=== PATIENT | female | born 1955 | race Caucasian/White ===

== ENCOUNTER → 2018-12-17 09:26 | Outpatient (CLI) | payer BC, SELFPAY ==
--- NOTE | 2018-12-17 09:33 | XR_ITS ---
PROCEDURE: XR FOOT WT BEARING RT 3V CLINICAL INDICATION: pain COMPARISON: XR FOOT WT BEARING LT 3V from 12/17/2018 FINDINGS: No fracture or dislocation. No lytic or blastic change. There is normal mineralization. Minimal osteoarthritic changes are present at the midfoot at the metatarsal tarsal junction. There is a small calcaneal spur and a small enthesophyte at the Achilles insertion Other findings:None. IMPRESSION: Mild osteoarthritic change Dictated by: Hugo Erwin MD 12/17/2018 13:33 Electronically signed by Hugo Erwin MD in [place] 12/17/2018 13:33
--- NOTE | 2018-12-17 09:33 | XR_ITS ---
PROCEDURE: XR FOOT WT BEARING LT 3V CLINICAL INDICATION: pain COMPARISON: No exams were available for comparison FINDINGS: No fracture or dislocation. No lytic or blastic change. There is normal mineralization. Prominent enthesophytes present at the Achilles insertion and there is a small calcaneal spur. Other findings:Mild osteoarthritic change at the ankle IMPRESSION: Mild osteoarthritic change Dictated by: Hugo Erwin MD 12/17/2018 13:31 Electronically signed by Hugo Erwin MD in [place] 12/17/2018 13:31
== END ==
PROVIDERS: Visit Provider Podiatrist
DX: M79.672 Pain in left foot (principal); M79.671 Pain in right foot
CPT/HCPCS: 73630; 87220

== ENCOUNTER → 2018-12-31 10:10 | Outpatient (CLI) | payer BC, SELFPAY ==
[2018-12-31 10:33] LABS: Basophils % 0.5 % (0.1-2.0); Eosinophils # 0.2 K/mm3 (0.0-0.4); Eosinophils % 3.9 % (0.1-12.0); Hematocrit 29.2 % (37.0-47.0); Hemoglobin 8.9 g/dL (12.2-16.2); Lymphocytes # 0.8 K/mm3 (0.7-4.5); Lymphocytes % 20.7 % (10-50); Mean Corpuscular HGB Conc 30.6 g/dL (31.8-35.4); Mean Corpuscular Hemoglobin 24.5 pg (27.0-31.2); Mean Corpuscular Volume 80.2 fl (81-99); Mean Platelet Volume 9.2 fl (7.4-10.4); Monocytes # 0.2 K/mm3 (0.1-1.0); Monocytes % 5.3 % (1.7-9.3); Neutrophils # 2.6 K/mm3 (1.8-7.8); Neutrophils % 69.6 % (37.0-80.0); Red Blood Count 3.64 M/mm3 (4.20-5.40); White Blood Count 3.8 K/mm3 (4.8-10.8)
[2018-12-31 11:59] LABS: Anion Gap 14.9 mEq/L (5-15); Carbon Dioxide 26 mmol/L (21.0-32.0); Chloride 107 mmol/L (98-107); Potassium 3.9 mmoL/L (3.5-5.1); Sodium 144 mmol/L (136-145)
[2018-12-31 12:00] LABS: Alanine Aminotransferase 26 U/L (12-78); Albumin Level 3.1 gm/dL (3.4-5.0); Alkaline Phosphatase 90 U/L (46-116); Aspartate Amino Transferase 36 U/L (15-37); Bilirubin,Total 0.5 mg/dL (0.2-1.0); Blood Urea Nitrogen 17 mg/dL (7-18); Calcium 8.2 mg/dL (8.5-10.1); Chol/HDL Ratio 2.9 (1-3.5); Cholesterol 166 mg/dL (140-200); Creatinine,Serum 0.53 mg/dL (0.55-1.02); Estimated Glomerular Filt Rate 116 ml/min (>60); GFR (African American) 141 ML/MIN (>60); Glucose 100 mg/dL (74-106); HDL Cholesterol 58 mg/dL (29-89); LDL Cholesterol 91 mg/dL (0-130); Total Protein,Serum 6.1 gm/dL (6.4-8.2); Triglycerides 85 mg/dL (30-200); VLDL Cholesterol 17 mg/dL (0-40)
[2018-12-31 14:29] LABS: Hemoglobin A1C 5.6 % (0.0-7.0)
[2018-12-31 15:58] LABS: Platelet Count 59 K/mm3 (142-424)
== END ==
PROVIDERS: Visit Provider Internal Medicine Geriatric Medicine
DX: E78.2 Mixed hyperlipidemia (principal); R73.01 Impaired fasting glucose
CPT/HCPCS: 36415; 80053; 80061; 83036; 85025

== ENCOUNTER → 2019-01-05 14:30 | Outpatient (CLI) | payer BC, SELFPAY ==
--- NOTE | 2019-01-05 14:33 | US_ITS ---
APPROVED REPORT Exam Type: Lower Extremity Segmental Pressures Business System Manager: Lenka Sanches RDCS Indications Claudication: Edema CAD Risk Factors Hypertension Pressures/Indices Right Indices Left Indices Brachial 141.00 mmHg Brachial 138.00 mmHg Low Thigh 152.00 mmHg 1.08 Low Thigh 162.00 mmHg 1.15 Calf 152.00 mmHg 1.08 Calf 141.00 mmHg 1.00 Ankle(PT) 156.00 mmHg 1.11 Ankle(PT) 159.00 mmHg 1.13 Ankle(DP) 147.00 mmHg 1.04 Ankle(DP) 137.00 mmHg 0.97 Digit 120.00 mmHg 0.85 Digit 146.00 mmHg 1.04 Findings R DAVID 1.1 L DAVID 1.1 R TBI .9 L TBI 1.0 NORMAL PULSES AND WAVEFORMS Conclusion Normal Exam Electronically signed by : Hugo Erwin MD 01/08/2019 16:42:07
== END ==
PROVIDERS: Visit Provider Podiatrist
DX: R09.89 Other specified symptoms and signs involving the circulatory and respiratory systems (principal)
CPT/HCPCS: 93923

== ENCOUNTER → 2019-04-28 14:03 | Outpatient (CLI) | payer MEDICARE, SELFPAY ==
--- NOTE | 2019-04-28 14:20 | CA_ITS ---
APPROVED REPORT Line Server: Angelita Corral RVT Laterality: Bilateral Study Quality: Good Indications: bruit Risk Factors Hypertension: Doppler Spectral Velocity Analysis ECA (R) 107.00/13.40 cm/s ECA (L) 92.50/14.20 cm/s dICA (R) 52.70/12.90 cm/s dICA (L) 55.90/16.80 cm/s Ly (R) 69.20/17.50 cm/s Ly (L) 68.80/15.70 cm/s pICA (R) 53.90/15.30 cm/s pICA (L) 70.10/18.40 cm/s dCCA (R) 90.50/17.30 cm/s dCCA (L) 101.10/14.60 cm/s pCCA (R) 83.00/12.90 cm/s pCCA (L) 60.00/15.40 cm/s Vert (R) 41.70/11.00 cm/s Vert (L) 35.80/9.30 cm/s ICA/CCA 0.76 ICA/CCA 0.69 Findings Study suggests no evidence of stenosis in the bilateral internal cartoid arteries. Antegrade flow seen bilateral vertebral arteries. Tortuosity of the right internal cartoid artery noted. Conclusion No increased velocities to suggest hemodynamically significant stenosis in either internal carotid artery. Electronically signed by : Hugo Erwin MD 04/30/2019 17:25:49
--- NOTE | 2019-04-28 14:20 | CA_ITS ---
APPROVED REPORT EXAM: Comprehensive 2D, Doppler, and color-flow Echocardiogram Ethylbenzene Converter Operator: Lenka Sanches RDCS Ht: 5 ft 3 in Wt: 286lbs BSA: 2.25 BP: 137/40 mmHg Indications: PP,CAD,CP,HTN,HLP,SOA DEFINITY ECHO Echo Enhancing Agent Indication: Endocardial border delineation Agent(s) / Amount(s) Used: Definity 1 cc M-Mode Dimensions RVDd 3.90 cm (0.9-2.6) LVDd 6.00 cm (3.5-5.7) LVDs 4.70 cm (3.5-5.7) IVSd 1.10 cm (0.6-1.1) PWd 1.10 cm (0.6-1.1) EF (Teich) 48.00% LV Diastology MED E' 7.20 (< 7 cm/sec) LAT E' 7.80 (<10 cm/sec) Left Ventricle Left atrium is mildly enlarged, left ventricle is normal size, visually estimated ejection fraction 45 to 50%, there appears to be moderate hypokinesis involving the distal septum and apical wall. Definity contrast was utilized to delineate the endocardial surfaces, there is no left ventricular thrombus seen. Right Ventricle Right atrium and right ventricle are normal size and contractility. Aortic Valve Aortic valve is minimally thickened and fibrosed, there is no aortic stenosis aortic insufficiency. Mitral Valve Mitral valve is grossly normal, there is mild mitral regurgitation. Tricuspid Valve Tricuspid valve is grossly normal, there is mild tricuspid regurgitation. Pulmonic Valve Pulmonic valve is poorly visualized. Great Vessels Aortic root is normal size. Pericardium No significant pericardial effusion noted. Conclusion 1. Limited study was performed to delineate the endocardial surfaces with Definity contrast. 2. Normal left ventricular size, mild concentric left ventricular hypertrophy, visually estimated ejection fraction approximately 45 to 50% with segmental wall motion abnormality described above, there is no left ventricular thrombus seen. 3. No significant pericardial effusion noted. Electronically signed by : Yunier Enriquez, 04/29/2019 15:57:39
[2019-04-28 17:06] LABS: Blood Urea Nitrogen 17 mg/dL (7-18); Calcium 8.4 mg/dL (8.5-10.1); Carbon Dioxide 26 mmol/L (21.0-32.0); Chloride 109 mmol/L (98-107); Creatinine,Serum 0.84 mg/dL (0.55-1.02); Estimated Glomerular Filt Rate 68 ml/min (>60); GFR (African American) 82 ML/MIN (>60); Glucose 126 mg/dL (74-106); Sodium 145 mmol/L (136-145)
== END ==
LOC: LAB 14:03 → RT 14:11
PROVIDERS: Visit Provider Internal Medicine Cardiovascular Disease
DX: R06.02 Shortness of breath (principal); D64.9 Anemia, unspecified; I11.9 Hypertensive heart disease without heart failure; I25.10 Atherosclerotic heart disease of native coronary artery without angina pectoris; Z95.0 Presence of cardiac pacemaker; R07.9 Chest pain, unspecified; I65.29 Occlusion and stenosis of unspecified carotid artery; R09.89 Other specified symptoms and signs involving the circulatory and respiratory systems
CPT/HCPCS: 36415; 80048; 83880; 93306; 93880; Q9957

== ENCOUNTER → 2019-05-20 11:57 | Outpatient (CLI) | payer MEDICARE, SELFPAY ==
--- NOTE | 2019-05-20 11:57 | NM_ITS ---
APPROVED REPORT Exam: Nuclear Stress Test Indication: SOB, Fatigue, HTN, CAD, High cholesterol, Family history Patient Location: Outpatient Stress Tech: Xiomara Ross SC Tech:Eunice AcevedoHAN RT(R)(N) Ht: 5 ft 4 in Wt: 283 lbs Bra Size: 48B HR: 71 bpm BP: 116/64 mmHg BSA: 2.27 m2 BMI: 48.5 History: SOB, Fatigue, HTN, CAD, High cholesterol, Family history Procedure: Patient received a 0.4 mg of intravenous Lexiscan, resting heart rate 71 bpm, resting blood pressure 116/64 mmHg, with Lexiscan maximum heart rate achived was 72 bpm which is Less than 85 % of the maximum predicted heart rate and blood pressure was 122/62 mmHg. Electrocardiogram Resting electrocardiogram showed probably sinus rhythm with first-degree AV block, nonspecific ST-T changes, with Lexiscan less than 1.[address] segment depression noted from the baseline EKG. The EKG portion of the Lexiscan Myoview is nondiagnostic. Cardiac Stress and Resting SPECT Images: Cardiac Stress and Resting SPECT images were obtained using technetium 99m Myoview 30.6 mCi stress and 10.95 mCi at rest. Gated SPECT for analysis of segmental wall motion and calculation of the ejection fraction also done. Cardiac stress and resting SPECT images show decrease tracer activity in the anterior apical wall which improves on the resting images suggestive of reversible ischemia, computer derived ejection fraction is 52% with no regional wall motion abnormality, right ventricle is mildly enlarged with normal contractility. Conclusion: 1. The EKG portion of the Lexiscan Myoview is nondiagnostic. 2. Scintigraphic evidence of mild reversible ischemia involving the anterior apical wall, computer derived ejection fraction 52% with no regional wall motion abnormality, right ventricle is normal size and contractility. 3. Abnormal Lexiscan Myoview study. Electronically signed by : Yunier Enriquez, 05/20/2019 16:25:24
--- NOTE | 2019-05-20 14:00 | CA_ITS ---
APPROVED REPORT Exam: Pharmacologic Technologist: Xiomara Ross, Ht: 5 ft 4 in Wt: 283 lbs BSA: 2.27 m2 HR: 71 bpm BP: 116/64 mmHg Rhythm: Paced Indications: Abn Echo Medical History Medical History: HTN, Hyperlipidemia Medications: Lisinopril,,,,, Omeprazole,,,,, Aspirin,,,,, Albuterol,,,,, Sucralfate,,,,, Fluoxetin,,,,, DilTiazem,,,,, SpirOnolactone,,,,, AtorvaASTATIN,,,,, PolyethYLENE,,,,, IsosoBIDE,,,,, NYstatin,,,,, Cardiac Risk Factors: HTN, Hyperlipidemia, FHX of CAD Stress Test Details Test: LEXISCAN HR Resting HR: 71 bpm Max Heart Rate (APMHR): 155 bpm Max HR Achieved: 74 bpm Target HR (85% APMHR): 131 bpm % of APMHR: 47 BP Resting BP: 116/64 mmHg Max BP: 122/62 mmHg ECG Clinical Exercise duration: 04:02 min Highest Stage Achieved: Exercise capacity: 1.0 METs Stress ECG Conclusion Mild SOA, chest discomfort, malaise, stomach discomfort are symptoms noted / no arrhythmias noted / No significant ST-T changes unremarkable Lexiscan stress / Myoview images reported separately Electronically signed by : Yunier Enriquez, 05/20/2019 16:23:03
--- NOTE | 2019-05-20 14:49 | HMH.ITSHM ---
Current Home Medications as stated by this patient Angela Botello or new accounts banking representative. []ASA METOPROLOL ISOSORBIDE LISINOPRIL FLUOXETINE OMEPRAZOLE DILT-XR ATORVASTATIN
== END ==
PROVIDERS: PCP Nurse Practitioner Family; Visit Provider Internal Medicine Cardiovascular Disease
DX: R07.9 Chest pain, unspecified; D64.9 Anemia, unspecified; E78.5 Hyperlipidemia, unspecified; I11.9 Hypertensive heart disease without heart failure; I25.10 Atherosclerotic heart disease of native coronary artery without angina pectoris; G47.33 Obstructive sleep apnea (adult) (pediatric); R53.83 Other fatigue; Z95.0 Presence of cardiac pacemaker
CPT/HCPCS: 78452; 93017; A9502; J2785

== ENCOUNTER → 2019-07-08 11:02 | Outpatient (CLI) | payer MEDICARE, SELFPAY ==
[2019-07-08 12:27] LABS: NT Pro Brain Natriuretic Pep. 30.6 pg/mL (0-125)
== END ==
PROVIDERS: Visit Provider Internal Medicine Cardiovascular Disease
DX: E78.2 Mixed hyperlipidemia (principal); I11.9 Hypertensive heart disease without heart failure; I25.118 Atherosclerotic heart disease of native coronary artery with other forms of angina pectoris; R06.00 Dyspnea, unspecified; R11.2 Nausea with vomiting, unspecified; R19.7 Diarrhea, unspecified; R60.0 Localized edema; Z95.0 Presence of cardiac pacemaker
CPT/HCPCS: 36415; 83880

== ENCOUNTER 2019-07-23 10:48 | Observation (INO) | payer MEDICARE, SELFPAY ==
[2019-07-23 10:49] VITALS: BP 117/85; PULSE 70; RESP 20; TEMP 37.4; O2SAT 98; BMI 37.1
--- NOTE | 2019-07-23 11:06 | ECG_ITS ---
APPROVED REPORT Exam: Resting ECG HR:71 bpm ECG Measurements Heart Rate 71 AXES ID P 60 QRSd 98 QRS -3 QT 412 T 13 QTc 447 <Conclusion> Sinus rhythm Low voltage QRS Poor R Wave Progression Abnormal ECG Electronically signed by : Shayan Cummings, 07/25/2019 17:30:17
[2019-07-23 11:19] VITALS: BP 119/71; PULSE 81; RESP 18; O2SAT 96
--- NOTE | 2019-07-23 11:24 | CT_ITS ---
PROCEDURE: CT ABDOMEN PELVIS W CON CLINICAL INDICATION: NV Abdominal pain with nausea and vomiting COMPARISON: No exams were available for comparison TECHNIQUE: IV Contrast: 75ML OPTIRAY 350 Oral Contrast none Axial images obtained with sagittal and coronal reformats. All CT scans at the facility use one or more dose reduction, viz: automated exposure control, ma/kV adjustment per patient size (including targeted exams where dose is matched to indication, i.e. head), or iterative reconstruction technique. FINDINGS: LOWER THORAX: No acute finding ABDOMEN & PELVIS: There is hepatomegaly. The borders of the liver are somewhat irregular suggesting cirrhosis. There is mild enlargement of the caudate lobe of the liver. There has been a prior cholecystectomy. The spleen is enlarged at 16 cm in AP dimension. The adrenal glands, pancreas, and kidneys have an unremarkable appearance. There are few small nodular opacities in the celiac region and could be due to small varices or small nodes. There is a small umbilical hernia which contains fat No evidence of appendicitis, intestinal obstruction, or free air. There is a Zuniga catheter present within a collapsed bladder with a small amount air in the bladder. There are post hysterectomy changes. There is diverticulosis of the sigmoid and descending colon. No evidence of diverticulitis. There is few scattered sclerotic foci of the pelvis and may be due to bone islands. IMPRESSION: 1. Hepatosplenomegaly with suspected cirrhosis 2. Colonic diverticulosis. No evidence of diverticulitis or other acute anomaly Dictated by: Hugo Erwin MD 07/23/2019 12:58 Electronically signed by Hugo Erwin MD in [place] 07/23/2019 12:58
--- NOTE | 2019-07-23 11:24 | XR_ITS ---
PROCEDURE: XR CHEST PORTABLE CLINICAL HISTORY: SOA Shortness of air COMPARISON: XR CHEST PORTABLE from 03/01/2019 XR CHEST PORTABLE from 07/05/2019 CT ANGIO CHEST from 07/05/2019 FINDINGS: Coronary artery stent is present. Cardiac pacemaker is present. No evidence of CHF. Patchy density noted in the left mid lung and may be due to summation artifact the scapula and ribs and vessels. Upright PA and lateral chest may confirm. The remaining lungs are clear. No acute bony abnormalities. IMPRESSION: No definite acute finding. Please see above for detail Dictated by: Hugo Erwin MD 07/23/2019 13:00 Electronically signed by Hugo Erwin MD in [place] 07/23/2019 13:00
[2019-07-23 11:32] LABS: Basophils # 0.1 K/mm3 (0-0.2); Basophils % 0.6 % (0.1-2.0); Eosinophils # 0.1 K/mm3 (0.0-0.4); Eosinophils % 1.2 % (0.1-12.0); Hemoglobin 12.9 g/dL (12.2-16.2); Lymphocytes # 0.9 K/mm3 (0.7-4.5); Lymphocytes % 10.1 % (10-50); Mean Corpuscular HGB Conc 33.1 g/dL (31.8-35.4); Mean Corpuscular Hemoglobin 28.7 pg (27.0-31.2); Mean Corpuscular Volume 86.6 fl (81-99); Mean Platelet Volume 8.8 fl (7.4-10.4); Monocytes # 0.5 K/mm3 (0.1-1.0); Monocytes % 5.1 % (1.7-9.3); Neutrophils # 7.5 K/mm3 (1.8-7.8); Platelet Count 129 K/mm3 (142-424); Red Cell Distribution Width 16.3 % (11.5-17.5)
[2019-07-23 11:34] LABS: Appearance,Urine CLEAR (Clear); Bilirubin,Urine Negative (Negative); Blood, Urine Negative (Negative); Color,Urine YELLOW (Yellow); Glucose,Urine (UA) Negative (Negative); Ketones,Urine Negative (Negative); Leukocyte Esterase,Urine Negative (Negative); Nitrate,Urine Negative (Negative); Protein,Urine Negative (Negative); Specific Gravity, Urine 1.015 (1.005-1.030); Urobilinogen,Urine 0.2 EU/dl (0.2)
[2019-07-23 11:35] LABS: Microscopic, Urine URINE MICROSCOPIC (MICROSCOPIC)
[2019-07-23 11:42] LABS: Alanine Aminotransferase 33 U/L (12-78); Albumin Level 4.2 g/dl (3.5-5.0); Albumin/Globulin Ratio 1.4 (1.1-1.8); Alkaline Phosphatase 136 U/L (38-126); Amylase 78 U/L (30-110); Anion Gap 15.9 mEq/L (5-15); Aspartate Amino Transferase 56 U/L (14-36); Bilirubin,Total 1.4 mg/dl (0.2-1.3); Blood Urea Nitrogen 15 mg/dl (7-17); Calcium 9.5 mg/dl (8.4-10.2); Carbon Dioxide 22 mmol/L (22.0-30.0); Chloride 103 mmol/L (98-107); Creatinine Clearance Estimated 92 mL/min (50-200); Estimated Glomerular Filt Rate 72 ml/min (>60); GFR (African American) 87 ML/MIN (>60); Glucose 112 mg/dl (74-100); Lipase 275 U/L (23-300); Potassium 3.9 mmoL/L (3.5-5.1); Sodium 137 mmol/L (136-145); Strep Scrn Group A (Rapid) Negative (Negative); Total Protein,Serum 7.2 g/dl (6.3-8.2)
[2019-07-23 11:45] LABS: Bacteria,Urine 1+ /lpf; Mucus,Urine 1+ /lpf
[2019-07-23 11:46] LABS: Lactic Acid 2.9 mmol/L (0.7-2.1)
[2019-07-23 11:47] LABS: C-Reactive Protein 6.5 mg/L (0-4)
[2019-07-23 11:49] VITALS: BP 94/60; PULSE 71; RESP 20; O2SAT 97
[2019-07-23 11:55] LABS: Erythrocyte Sedimentation Rate 35 mm/hr (0-30)
[2019-07-23 11:57] LABS: Troponin I < 0.01 ng/ml (0.00-0.034)
--- NOTE | 2019-07-23 12:05 | HMH.EDNVD ---
ED Disposition Clinical Impression: Gastroenteritis, Dehydration, Morbid obesity with BMI of 45.0-49.9, adult, Plantar wart of right foot, Intractable abdominal pain, UTI (urinary tract infection), GERD (gastroesophageal reflux disease) Disposition: Admitted as Observation Condition on Discharge: Good Instructions: DI for Diarrhea and Traveler's Diarrhea -- Adult, DI for Diarrhea and Traveler's Diarrhea -- Child, DI for Nausea -- Adult, DI for Nausea -- Child Additional Instructions: Spoke to Matias about admission for this patient Dr. Gallagher also agreed. Referrals: Stuart Gallagher MD [Primary Care Provider] - - Critical Care Critical Care Time: No Attestation: On 07/23/19, the high probability of a clinically significant, sudden or life threatening deterioration of the following system(s) required my full and direct attention, intervention and personal management. The time I documented below is in addition to time spent performing reported procedures but includes the following listed in this critical care notation. Medical Decision Making - Medical Records Medical records reviewed: Yes: I reviewed the patient's medical records. - Fercho Inquiry Pt receiving controlled substance: No Vital Signs: 07/23/19 10:49 07/23/19 11:19 07/23/19 11:49 Temperature 99.3 F Temperature Source Rectal Pulse Rate [Right] 70 81 71 Respiratory Rate 20 18 20 Blood Pressure [Right Arm] 117/85 119/71 94/60 L Blood Pressure Mean [Right Arm] 95 87 71 Blood Pressure Source [Right Arm] Automatic Cuff Automatic Cuff Blood Pressure Position [Right Arm] Supine Supine 02 Sat by Pulse Oximetry 98 96 97 - Lab Data Lab results reviewed: Yes: I reviewed the patient's lab results. Lab Results 07/23/19 11:20: Urine Color Yellow, Urine Appearance Clear, Urine pH 6.0, Ur Specific [place] 1.015, Urine Protein Negative, Urine Glucose (UA) Negative, Urine Ketones Negative, Urine Blood Negative, Urine Nitrate Negative, Urine Bilirubin Negative, Urine Urobilinogen 0.2, Ur Leukocyte Esterase Negative, Urine RBC 5-10, Urine WBC 10-20, Ur Squamous Epith Cells 3-5, Urine Bacteria 1+, Hyaline Casts 5-10, Urine Mucus 1+ 07/23/19 11:20: WBC 9.0, RBC 4.50, Hgb 12.9, Hct 39.0, MCV 86.6, MCH 28.7, MCHC 33.1, RDW 16.3, Plt Count 129 L, MPV 8.8, Neut % (Auto) 83.0 H, Lymph % (Auto) 10.1, [place] % (Auto) 5.1, Eos % (Auto) 1.2, Baso % (Auto) 0.6, Neut # (Auto) 7.5, Lymph # (Auto) 0.9, [place] # (Auto) 0.5, Eos # (Auto) 0.1, Baso # (Auto) 0.1 07/23/19 11:20: Sodium 137, Potassium 3.9, Chloride 103, Carbon Dioxide 22, Anion Gap 15.9 H, BUN 15, Creatinine 0.80, Estimated Creat Clear 92, Estimated GFR 72, Est GFR ( Amer) 87, Glucose 112 H, Calcium 9.5, Total Bilirubin 1.4 H, AST 56 H, ALT 33, Alkaline Phosphatase 136 H, Troponin I < 0.01, C-Reactive Protein 6.5 H, Total Protein 7.2, Albumin 4.2, Globulin 3.0, Albumin/Globulin Ratio 1.4, Amylase 78, Lipase 275 07/23/19 11:20: Lactate 2.9 H 07/23/19 11:20: Influenza Type A Ag Negative, Influenza Type B Ag Negative 07/23/19 11:20: Group A Strep Rapid Negative 07/23/19 11:20: ESR 35 H 07/23/19 12:25: Chlamy pneumoniae PCR Not detected, Adenovirus (PCR) Not detected, B. pertussis DNA (PCR) Not detected, Coronavirus OC43 (PCR) Not detected, Coronavirus HKU1 (PCR) Not detected, Coronavirus 229E (PCR) Not detected, Coronavirus NL63 (PCR) Not detected, Human Metapneumovir PCR Not detected, Influenza A (H1) PCR Not detected, Influ A (H1N1/09) PCR Not detected, Influenza A (H3) PCR Not detected, Influenza Type A (PCR) Not detected, Influenza Type B (PCR) Not detected, M. pneumoniae (PCR) Not detected, Parainfluenza 1 (PCR) Not detected, Parainfluenza 2 (PCR) Not detected, Parainfluenza 3 (PCR) Not detected, Parainfluenza 4 (PCR) Not detected, RSV (PCR) Not detected, Entero/Rhino (PCR) Not detected Result diagrams: 07/23/19 11:20 07/23/19 11:20 Orders (Tests/Meds): ED MEDICATIONS Discontinued Medications Generic Name Dose Route
[2019-07-23 12:33] LABS: Adenovirus,PCR Not Detected (NotDetected); Bordetella Pertussis Not Detected (NotDetected); Chlamydophila Pneumoniae, PCR Not Detected (NotDetected); Coronavirus 229E Not Detected (NotDetected); Coronavirus NL63 Not Detected (NotDetected); Coronavirus OC43 Not Detected (NotDetected); Coronovirus HKU1,PCR Not Detected (NotDetected); Human Metapneumovirus Not Detected (NotDetected); Influenza A, PCR Not Detected (NotDetected); Influenza AH1, 2009 Not Detected (NotDetected); Influenza AH1, PCR Not Detected (NotDetected); Influenza AH3,PCR Not Detected (NotDetected); Influenza B, PCR Not Detected (NotDetected); Mycoplasma Pneumoniae, PCR Not Detected (NotDetected); Parainfluenza 1, PCR Not Detected (NotDetected); Parainfluenza 2, PCR Not Detected (NotDetected); Parainfluenza 3, PCR Not Detected (NotDetected); Parainfluenza 4, PCR Not Detected (NotDetected); Respiratory Syncytial Virus Not Detected (NotDetected); Rhinovirus/Enterovirus Not Detected (NotDetected)
[2019-07-23 14:28] VITALS: BMI 40.7
[2019-07-23 14:42] VITALS: BP 114/85; PULSE 85; RESP 20; TEMP 36.8; O2SAT 98
--- NOTE | 2019-07-23 15:01 | HMH.PHAVTE ---
[facility] Pharmacy VTE Monitoring - Patient Demographics Admission date: 07/23/19 Report Date: 07/23/19 Time: 15:01 Allergies/Adverse Reactions: Patient Allergies furosemide [From Lasix] Allergy (Severe, Verified 07/09/19 10:35) tongue swelling acetaminophen [From Coricidin] Allergy (Mild, Verified 07/09/19 10:35) Hives chlorpheniramine [From Coricidin] Allergy (Mild, Verified 07/09/19 10:35) Hives erythromycin base Allergy (Mild, Verified 07/09/19 10:35) Hives phenylpropanolamine [From Coricidin] Allergy (Mild, Verified 07/09/19 10:35) Hives ranolazine [From Ranexa] Allergy (Mild, Verified 07/09/19 10:35) Hives Sulfa (Sulfonamide Antibiotics) Allergy (Mild, Verified 07/09/19 10:35) Hives tegaserod [From Zelnorm] Adverse Reaction (Severe, Verified 07/09/19 10:35) Height: 1.68 m Weight: 104.326 kg Patient Problems: Current Active Problems Gastroenteritis (Acute) Dehydration (Acute) Intractable abdominal pain (Acute) UTI (urinary tract infection) (Acute) GERD (gastroesophageal reflux disease) (Acute) Morbid obesity with BMI of 45.0-49.9, adult (Acute) Plantar wart of right foot (Acute) - VTE Risk Labs: VTE Related Lab Results Hgb 12.9 g/dL (12.2-16.2) 07/23/19 11:20 Hct 39.0 % (37.0-47.0) 07/23/19 11:20 Plt Count 129 K/mm3 (142-424) L 07/23/19 11:20 BUN 15 mg/dl (7-17) 07/23/19 11:20 Creatinine 0.80 mg/dl (0.52-1.04) 07/23/19 11:20 Estimated Creat Clear 92 mL/min (50-200) 07/23/19 11:20 - Prophylaxis VTE Prophylaxis Ordered?: Yes Types of VTE Prophylaxis: TEDS Knee High Location of Applied Device: Bilateral Lower Extremeties - VTE Diagnosis Confirmed Treatment or plan recommended: Continue Current Treatment
[2019-07-23 15:29] LABS: Reflex Lactic Add Lactic Reflex
[2019-07-23 15:41] VITALS: BP 126/60; PULSE 71; RESP 20; TEMP 36.6; O2SAT 94
[2019-07-23 16:45] LABS: Lactic Acid Follow Up (RFLX 1) 1.7 mmol/L (0.7-2.1)
[2019-07-23 17:06] LABS: Troponin I < 0.01 ng/ml (0.00-0.034)
[2019-07-23 20:00] VITALS: BP 97/56; PULSE 70; RESP 20; TEMP 36.6; O2SAT 93
[2019-07-24 04:05] VITALS: BP 98/76; PULSE 70; RESP 20; TEMP 37.1; O2SAT 94
--- NOTE | 2019-07-24 04:43 | PC.NURSE ---
PT HAS SLEPT INTERMITTENTLY. ASHLEY FU. WEARS HOME CPAP WHILE SLEEPING. NO COMPLAINTS OF PAIN OR N/V.
[2019-07-24 05:33] VITALS: BMI 38.0
--- NOTE | 2019-07-24 05:34 | PC.NURSE ---
RN NOTIFIED OF WEIGHT LOSS
[2019-07-24 07:17] LABS: Chloride 101 mmol/L (98-107); Potassium 3.9 mmoL/L (3.5-5.1); Sodium 134 mmol/L (136-145)
[2019-07-24 07:19] LABS: Blood Urea Nitrogen 18 mg/dl (7-17); Creatinine Clearance Estimated 86 mL/min (50-200); Estimated Glomerular Filt Rate 63 ml/min (>60); GFR (African American) 76 ML/MIN (>60)
[2019-07-24 07:20] LABS: Alanine Aminotransferase 20 U/L (12-78); Albumin Level 3.5 g/dl (3.5-5.0); Albumin/Globulin Ratio 1.3 (1.1-1.8); Alkaline Phosphatase 113 U/L (38-126); Anion Gap 11.9 mEq/L (5-15); Aspartate Amino Transferase 44 U/L (14-36); Bilirubin,Total 1.4 mg/dl (0.2-1.3); Carbon Dioxide 25 mmol/L (22.0-30.0); Globulin 2.7 g/dL (1.3-3.2); Glucose 90 mg/dl (74-100); Total Protein,Serum 6.2 g/dl (6.3-8.2)
[2019-07-24 07:21] LABS: Calcium 8.5 mg/dl (8.4-10.2)
[2019-07-24 07:26] LABS: Basophils % 0.5 % (0.1-2.0); Eosinophils # 0.3 K/mm3 (0.0-0.4); Eosinophils % 3.3 % (0.1-12.0); Hematocrit 36.6 % (37.0-47.0); Lymphocytes # 1.5 K/mm3 (0.7-4.5); Lymphocytes % 17.9 % (10-50); Mean Corpuscular HGB Conc 32.8 g/dL (31.8-35.4); Mean Corpuscular Hemoglobin 28.3 pg (27.0-31.2); Mean Corpuscular Volume 86.3 fl (81-99); Mean Platelet Volume 8.4 fl (7.4-10.4); Monocytes # 0.5 K/mm3 (0.1-1.0); Monocytes % 5.5 % (1.7-9.3); Neutrophils # 6.2 K/mm3 (1.8-7.8); Neutrophils % 72.9 % (37.0-80.0); Platelet Count 108 K/mm3 (142-424); Red Blood Count 4.23 M/mm3 (4.20-5.40); Red Cell Distribution Width 16.6 % (11.5-17.5); White Blood Count 8.5 K/mm3 (4.8-10.8)
[2019-07-24 07:50] VITALS: BP 102/59; PULSE 74; RESP 20; TEMP 36.8; O2SAT 91
--- NOTE | 2019-07-24 10:43 | HMH.PHAINT ---
MED REC-COMPARED MED LIST WITH FILL HX.
--- NOTE | 2019-07-24 11:09 | HMH.HPDC ---
General - General Admission date:: 07/23/19 Discharge date: 07/24/19 *Admission Date: 07/23/19 *Chief complaint: n/v/d *History of present illness: 64-year-old female presents to ed with c/o vomiting up blood tinged vomitus. Patient states had a nosebleed earlier today and had a couple episodes of blood-tinged vomitus. Pt s/o she has had generalized weakness and fatigue for 7 days. Patient denies any fever. Patient denies any overt shortness of breath or any shortness of breath. Patient also denies any cough. 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 Patient admitted for IV fluids and antibiotics for UTI. [facility] History I have reviewed the patient's past medical history: Yes Medical History: Reports:: Anxiety, Asthma, Cancer, Coronary Artery Disease, Depression, Gall Bladder Disease, Gastroesophageal Reflux Disease(GERD), Hyperlipidemia, Hypertension, Internal Pacemaker, Migraine Denies:: Dementia, Diabetes Mellitus Type 1, Diabetes Mellitus Type 2 *Have you ever received a pneumonia vaccine?: Yes *Have you received a flu vaccine this season?: No Other Medical History: Reports: Arthritis, Cataracts, Liver Disease Other Surgeries: Yes: Bariatric Surgery (2002), Cancer Surgery, Cardiac Catheterization, Cardiac Surgery, Cholecystectomy, Colonoscopy, Coronary Stent, Dilation and Curettage (1982), EGD, Hysterectomy-Total, Pacemaker, Other (hemorroid surgery, bone marrow 2014) Amputation: No Fractures: No - *Social History Educational Level: Completed College Smoking Status: Never smoker Alcohol Intake: never Alcohol Intake Frequency:: holidays/special occasions only Substance Use Type: denies use *Occupational Status:: retired Housing: house Household Members: family *Travel in the last 8 weeks: None - Psychiatric History Pschychiatric History:: Reports:: Anxiety, Depression Family Hx:: Coronary Artery Disease, Heart Attack, Hyperlipidemia, Hypertension, Substance abuse, Mental illness, Other Review of Systems - Review of Systems Review of systems:: pertinent systems reviewed and negative unless documented below - Constitutional Reports fatigue, Reports malaise, Denies weight gain - Eyes Denies blurry vision - ENT Denies nasal discharge - *Cardiovascular Denies chest pain with activity - *Respiratory Denies chest congestion, Denies cough - *Gastrointestinal Reports nausea, Reports vomiting - *Genitourinary Reports urinary urgency, Denies urinary incontinence - *Musculoskeletal Denies decreased muscle mass - Integumentary/Breasts Denies rash - *Neurologic Reports weakness - Psychiatric Denies lack of enjoyment - Endocrine Denies flushing - Hematologic/Lymphatic Denies enlarged lymph nodes - Allergic/Immunologic Denies lip swelling Exam Vital signs and Labs for Last 24 Hours: Temp Pulse Resp BP Pulse Ox 98.2 F 74 20 102/59 L 91 L 07/24/19 07:50 07/24/19 07:50 07/24/19 07:50 07/24/19 07:50 07/24/19 07:50 Laboratory Results - last 24 hr 07/23/19 11:20: Urine Color Yellow, Urine Appearance Clear, Urine pH 6.0, Ur Specific [place] 1.015, Urine Protein Negative, Urine Glucose (UA) Negative, Urine Ketones Negative, Urine Blood Negative, Urine Nitrate Negative, Urine Bilirubin Negative, Urine Urobilinogen 0.2, Ur Leukocyte Esterase Negative, Urine RBC 5-10, Urine WBC 10-20, Ur Squamous Epith Cells 3-5, Urine Bacteria 1+, Hyaline Casts 5-10, Urine Mucus 1+ 07/23/19 11:20: WBC 9.0, RBC 4.50, Hgb 12.9, Hct 39.0, MCV 86.6, MCH 28.7, MCHC 33.1, RDW 16.3, Plt Count 129 L, MPV 8.8, Neut % (Auto) 83.0 H, Lymph % (Auto) 10.1, [place] % (Auto) 5.1, Eos % (Auto) 1.2, Baso % (Auto) 0.6, Neut # (Auto) 7.5, Lymph # (Auto) 0.9, [place] # (Auto) 0.5, Eos # (Auto) 0.1, Baso # (Auto) 0.1 07/23/19 11:20: Sodium 137, Potassium 3.9, Chloride 103, Carbon Dioxide 22, Anion Gap 15.9 H, BUN 15, Creatinine 0.80, Estimated Creat Clear 92, Estimated GFR 7
--- NOTE | 2019-07-24 11:28 | PC.NURSE ---
Did call and speak with Reina in RE to pt being d/c'd this shift. Did speak with Joanna li APRN and she did request pt to wait to leave to approx [phone]. r/t pt having pain med and slightly drowsy. Pt is alert and oriented and sitting on side of bed talking to me at this time at this time. VSS.
[2019-07-24 12:00] VITALS: BP 106/50; PULSE 73; RESP 18; TEMP 36.8; O2SAT 94
== END 2019-07-24 14:25 | disposition home or self-care (01) ==
LOC: ER 14:20 → 2ND 14:23
PROVIDERS: Admitting Provider Emergency Medicine; Emergency Provider Family Medicine; PCP Emergency Medicine; Visit Provider Emergency Medicine
DX: N39.0 Urinary tract infection, site not specified (principal); B95.1 Streptococcus, group B, as the cause of diseases classified elsewhere; J45.909 Unspecified asthma, uncomplicated; I25.10 Atherosclerotic heart disease of native coronary artery without angina pectoris; Z95.0 Presence of cardiac pacemaker; Z95.5 Presence of coronary angioplasty implant and graft; Z88.8 Allergy status to other drugs, medicaments and biological substances; E86.0 Dehydration
CPT/HCPCS: 36415; 71045; 74177; 80053; 81001; 82150; 83605; 83690; 84484; 85025; 85651; 86140; 87040; 87086; 87186; 87275; 87276; 87430; 87486; 87581; 87633; 87798; 93005; 96365; 96375; 99285; G0378; J1335

== ENCOUNTER 2019-08-12 17:33 | Observation (INO) | payer MEDICARE, SELFPAY ==
[2019-08-12] VITALS (8 sets, daily range): BP systolic 98–112; BP diastolic 46–76; PULSE 70–73; RESP 18–22; TEMP 36.5–36.8; O2SAT 93–99; BMI 37.8; BMI 46.0
--- NOTE | 2019-08-12 17:43 | XR_ITS ---
PROCEDURE: XR CHEST PORTABLE CLINICAL HISTORY: pain Chest pain COMPARISON: XR CHEST PORTABLE from 03/01/2019 XR CHEST PORTABLE from 07/05/2019 CT ANGIO CHEST from 07/05/2019 XR CHEST PORTABLE from 07/23/2019 FINDINGS: There is a bipolar pacemaker present from left subclavian approach. Borderline cardiomegaly without failure. The lungs are clear without infiltrates, suspicious nodules, or pleural effusions. No acute bony abnormalities. IMPRESSION: No acute findings. Dictated by: Hugo Erwin MD 08/12/2019 18:43 Electronically signed by Hugo Erwin MD in [place] 08/12/2019 18:43
--- NOTE | 2019-08-12 17:43 | ECG_ITS ---
APPROVED REPORT Exam: Resting ECG HR:70 bpm ECG Measurements Heart Rate 70 AXES QRSd 100 QRS 12 QT 426 T -52 QTc 460 <Conclusion> Accelerated Junctional rhythm Cannot rule out Inferior infarct, age undetermined Anterior infarct, age undetermined ST & T wave abnormality, consider lateral ischemia Abnormal ECG Electronically signed by : Kvng Arenas, 08/13/2019 06:30:44
[2019-08-12 17:51] LABS: Basophils % 0.4 % (0.1-2.0); Eosinophils # 0.2 K/mm3 (0.0-0.4); Eosinophils % 3.2 % (0.1-12.0); Hematocrit 38.1 % (37.0-47.0); Hemoglobin 12.3 g/dL (12.2-16.2); Lymphocytes # 1.1 K/mm3 (0.7-4.5); Lymphocytes % 15.7 % (10-50); Mean Corpuscular HGB Conc 32.1 g/dL (31.8-35.4); Mean Corpuscular Hemoglobin 27.9 pg (27.0-31.2); Mean Platelet Volume 8.2 fl (7.4-10.4); Monocytes # 0.3 K/mm3 (0.1-1.0); Monocytes % 4.4 % (1.7-9.3); Neutrophils # 5.3 K/mm3 (1.8-7.8); Neutrophils % 76.3 % (37.0-80.0); Platelet Count 122 K/mm3 (142-424); Red Blood Count 4.38 M/mm3 (4.20-5.40); Red Cell Distribution Width 16.9 % (11.5-17.5); White Blood Count 6.9 K/mm3 (4.8-10.8)
[2019-08-12 17:53] LABS: Chloride 102 mmol/L (98-107); Potassium 4.1 mmoL/L (3.5-5.1); Sodium 136 mmol/L (136-145)
[2019-08-12 17:55] LABS: Microscopic, Urine URINE MICROSCOPIC (MICROSCOPIC)
[2019-08-12 17:55] LABS: Blood Urea Nitrogen 17 mg/dl (7-17); Creatinine Clearance Estimated 88 mL/min (50-200); Estimated Glomerular Filt Rate 72 ml/min (>60); GFR (African American) 87 ML/MIN (>60)
[2019-08-12 17:56] LABS: Alanine Aminotransferase 30 U/L (12-78); Anion Gap 13.1 mEq/L (5-15); Aspartate Amino Transferase 55 U/L (14-36); Bilirubin,Unconjugated 0.7 mg/dL (0.0-1.1); Calcium 9.3 mg/dl (8.4-10.2); Carbon Dioxide 25 mmol/L (22.0-30.0); Glucose 87 mg/dl (74-100)
[2019-08-12 17:57] LABS: Albumin Level 3.9 g/dl (3.5-5.0); Alkaline Phosphatase 131 U/L (38-126); Bilirubin,Direct 0.4 mg/dl (0.0-0.4); Bilirubin,Indirect 0.7 mg/dL (0.0-0.9); Bilirubin,Total 1.1 mg/dl (0.2-1.3); Total Protein,Serum 6.9 g/dl (6.3-8.2)
--- NOTE | 2019-08-12 18:02 | PC.NURSE ---
Rad at bedside
[2019-08-12 18:10] LABS: Appearance,Urine CLEAR (Clear); Bilirubin,Urine Negative (Negative); Blood, Urine 2+ (Negative); Color,Urine YELLOW (Yellow); Glucose,Urine (UA) Negative (Negative); Ketones,Urine Negative (Negative); Leukocyte Esterase,Urine Negative (Negative); Nitrate,Urine Negative (Negative); Protein,Urine Negative (Negative); Specific Gravity, Urine 1.015 (1.005-1.030); Urobilinogen,Urine 0.2 EU/dl (0.2)
[2019-08-12 18:11] LABS: Troponin I < 0.01 ng/ml (0.00-0.034)
[2019-08-12 18:17] LABS: Bacteria,Urine Trace /lpf; Squamous Epithelial Cell,Urine Occasional #/hpf (0-5); WBC,Urine Occasional #/hpf (0-3)
--- NOTE | 2019-08-12 18:32 | HMH.EDCP ---
ED Disposition Clinical Impression: Stable angina Disposition: Admitted as Observation Condition on Discharge: Good Additional Instructions: Spoke to Dr. Bliss for admission for this patient. Referrals: Stuart Gallagher MD [Primary Care Provider] - - Critical Care Critical Care Time: No Attestation: On 08/12/19, the high probability of a clinically significant, sudden or life threatening deterioration of the following system(s) required my full and direct attention, intervention and personal management. The time I documented below is in addition to time spent performing reported procedures but includes the following listed in this critical care notation. Medical Decision Making - Medical Records Medical records reviewed: Yes: I reviewed the patient's medical records. - Fercho Inquiry Pt receiving controlled substance: No Vital Signs: 08/12/19 17:31 08/12/19 17:57 Pulse Rate [Left Radial] 72 70 Respiratory Rate 22 Blood Pressure [Right Arm] 110/47 L 103/76 L Blood Pressure Mean [Right Arm] 68 85 Blood Pressure Position [Right Arm] Sitting Sitting 02 Sat by Pulse Oximetry 97 Oxygen Delivery Method Room Air - Lab Data Lab results reviewed: Yes: I reviewed the patient's lab results. Lab Results 08/12/19 17:27: WBC 6.9, RBC 4.38, Hgb 12.3, Hct 38.1, MCV 87.0, MCH 27.9, MCHC 32.1, RDW 16.9, Plt Count 122 L, MPV 8.2, Neut % (Auto) 76.3, Lymph % (Auto) 15.7, [place] % (Auto) 4.4, Eos % (Auto) 3.2, Baso % (Auto) 0.4, Neut # (Auto) 5.3, Lymph # (Auto) 1.1, [place] # (Auto) 0.3, Eos # (Auto) 0.2, Baso # (Auto) 0.0 08/12/19 17:27: Sodium 136, Potassium 4.1, Chloride 102, Carbon Dioxide 25, Anion Gap 13.1, BUN 17, Creatinine 0.80, Estimated Creat Clear 88, Estimated GFR 72, Est GFR ( Amer) 87, Glucose 87, Calcium 9.3, Troponin I < 0.01 08/12/19 17:27: Total Bilirubin 1.1, Direct Bilirubin 0.4, Conjugated Bilirubin 0.0, Indirect Bilirubin 0.7, Unconjugated Bilirubin 0.7, AST 55 H, ALT 30, Alkaline Phosphatase 131 H, Total Protein 6.9, Albumin 3.9 08/12/19 17:46: Urine Color Yellow, Urine Appearance Clear, Urine pH 6.0, Ur Specific [place] 1.015, Urine Protein Negative, Urine Glucose (UA) Negative, Urine Ketones Negative, Urine Blood 2+, Urine Nitrate Negative, Urine Bilirubin Negative, Urine Urobilinogen 0.2, Ur Leukocyte Esterase Negative, Urine RBC 5-10, Urine WBC Occasional, Ur Squamous Epith Cells Occasional, Urine Bacteria Trace Result diagrams: 08/12/19 17:27 08/12/19 17:27 Orders (Tests/Meds): ED MEDICATIONS Discontinued Medications Generic Name Dose Route Start Last Admin Trade Name Malachi PRN Reason Stop Dose Admin Morphine Sulfate 4 mg 08/12/19 18:42 08/12/19 18:42 Morphine 4mg/Ml Syringe IV 08/12/19 18:43 4 mg ONCE ONE Administration Nitroglycerin 1 gm 08/12/19 17:42 08/12/19 17:49 Nitroglycerin 1 Inch Oint Udp TD 08/12/19 17:43 1 gm ONCE ONE Administration Ondansetron HCl 4 mg 08/12/19 17:43 08/12/19 17:44 Zofran 4mg/2ml Vial IV 08/12/19 17:44 4 mg ONCE ONE Administration ORDERS Category Date Time Status Troponin I Q3H Lab 08/12/19 20:45 Ordered Troponin I Q3H Lab 08/12/19 23:45 Ordered - ECG Data Tracing #1 I reviewed this ECG and interpreted as documented below: Normal Sinus Rhythm: Yes - EARL Score for Non-Stemi Age of Patient: 60-69 years old Heart Rate: 70-89 bpm Systolic Blood Pressure: 100-119 mmHg Serum Creatinine: 0.40-0.79 mg/dl CHF Kill[place] Class: I-No CHF Other Risk Factors: None Non-Stemi Risk Score: 114 Risk Stratification: 109-140 = Intermediate Ri Medical Decision Narrative: Spoke to Dr. Bedoya he said he would consult on this patient he want me to start her on long-acting nitrate and also Ranexa 500 mg p.o. twice daily. Chest Pain HPI - General Chief Complaint: Chest Pain Stated Complaint: Chest pain Time Seen by Provider: 08/12/19 18:32 Mode of Arrival: EMS Source of Information: Patient Limitations: No
--- NOTE | 2019-08-12 20:04 | HMH.HP ---
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 pt given 324 mg asa 1 nitro and 4mg zofran per medic. pt states heart cath approx 2 months ago which was clean 64-year-old female presents the ED with an acute onset of substernal chest pain. She states the pain started about 2 hours ago and is progressively gotten worse until she presented here to the emergency department patient does describe the pain as a pressure and squeezing sensation and she states that she does have radiation up to the jaw and over to the left shoulder and to the back. Patient also states that she recently had a cardiac catheterization done by Dr. Bedoya 2 months ago and per cath report patient did have some stenoses in her vessels no intervention was done at that time and the impression was to medical manage this patient. Patient did have an MD back in 2009 did have one stent placed. Patient does have hyperlipidemia diabetes mellitus type 2 and also hypertension. Patient states with his episode of chest pain she did feel some short of breath but not overt short of breath. Patient denies any cough patient denies any headache patient denies any fever shakes or chills patient also denies any subjective fever. Patient also denies any recent nausea vomiting or diarrhea patient denies sore throat patient also denies any fatigue or malaise or arthralgias or myalgias or loss of smell or loss of taste. pt was admitted for [facility] History I have reviewed the patient's past medical history: Yes Medical History: Reports:: Anxiety, Asthma, Cancer, Coronary Artery Disease, Depression, Gall Bladder Disease, Gastroesophageal Reflux Disease(GERD), Hyperlipidemia, Hypertension, Internal Pacemaker, Migraine Denies:: Dementia, Diabetes Mellitus Type 1, Diabetes Mellitus Type 2 *Have you ever received a pneumonia vaccine?: Yes *Have you received a flu vaccine this season?: Yes Other Medical History: Reports: Arthritis, Cataracts, Liver Disease Other Surgeries: Yes: Bariatric Surgery (2002), Cancer Surgery, Cardiac Catheterization, Cardiac Surgery, Cholecystectomy, Colonoscopy, Coronary Stent, Dilation and Curettage (1982), EGD, Hysterectomy-Total, Pacemaker, Other (hemorroid surgery, bone marrow 2014) Amputation: No Fractures: No - *Social History Smoking Status: Never smoker Alcohol Intake: never Alcohol Intake Frequency:: holidays/special occasions only Substance Use Type: denies use *Occupational Status:: other Housing: other Household Members: other *Travel in the last 8 weeks: None - Psychiatric History Pschychiatric History:: Reports:: Anxiety, Depression Family Hx:: Coronary Artery Disease, Heart Attack, Hyperlipidemia, Hypertension, Substance abuse, Mental illness, Other Review of Systems - Review of Systems Review of systems:: pertinent systems reviewed and negative unless documented below - Constitutional Denies fever(s) - Eyes Denies change in vision - ENT Denies sore throat - *Cardiovascular Reports chest pain at rest - *Respiratory Denies cough - *Gastrointestinal Denies abdominal pain - *Genitourinary Denies blood in urine - *Musculoskeletal Denies joint pain - Integumentary/Breasts Denies rash - *Neurologic Denies localized weakness, Denies seizure-like activity - Psychiatric Denies anxiety Meds Home Medications Medication Instructions Recorded Confirmed Type aspirin 81 mg tablet,delayed 81 mg PO DAILY 12/17/18 08/12/19 History release atorvastatin 10 mg tablet 10 mg PO DAILY 12/17/18 08/12/19 History polyethylene glycol 3350 17 8.5 g PO DAILY PRN 12/17/18 08/12/19 History gram/dose or
--- NOTE | 2019-08-12 20:18 | PC.NURSE ---
pt arrived to floor via wheelchair from ED
[2019-08-12 20:44] LABS: Chloride 103 mmol/L (98-107); Potassium 4.6 mmoL/L (3.5-5.1); Sodium 139 mmol/L (136-145)
[2019-08-12 20:46] LABS: Alanine Aminotransferase 28 U/L (12-78); Aspartate Amino Transferase 51 U/L (14-36); Bilirubin,Total 0.9 mg/dl (0.2-1.3); Blood Urea Nitrogen 17 mg/dl (7-17); Creatinine Clearance Estimated 88 mL/min (50-200); Estimated Glomerular Filt Rate 63 ml/min (>60); GFR (African American) 76 ML/MIN (>60)
[2019-08-12 20:47] LABS: Albumin Level 3.8 g/dl (3.5-5.0); Albumin/Globulin Ratio 1.3 (1.1-1.8); Alkaline Phosphatase 131 U/L (38-126); Anion Gap 14.6 mEq/L (5-15); Calcium 9.3 mg/dl (8.4-10.2); Carbon Dioxide 26 mmol/L (22.0-30.0); Globulin 2.9 g/dL (1.3-3.2); Glucose 100 mg/dl (74-100); Total Protein,Serum 6.7 g/dl (6.3-8.2)
[2019-08-12 21:18] LABS: Troponin I < 0.01 ng/ml (0.00-0.034)
[2019-08-13] VITALS: PULSE 70
[2019-08-13 00:11] VITALS: BP 102/68
[2019-08-13 00:12] LABS: Troponin I < 0.01 ng/ml (0.00-0.034)
--- NOTE | 2019-08-13 02:12 | PC.NURSE ---
NOTE: LATE ENTRY 0000- PT. C/O PAIN RADIATING DOWN HER ARM WITH PRESSURE ON MY CHEST ; PT. REPORTED THAT SHE PASSED GAS AND THIS SEEMED TO HAVE DECREASED THE PAIN. PT. EDUCATED ON CP INTERVENTIONS WELL AVAILABLE PRN MEDICATIONS; PT. VERBALIZED UNDERSTANDING BUT DOES NOT WANT TX AT THIS TIME. WHEN THIS RN ALERTED PT. TO CONTACTING MD PT. REFUSED AND REPORTED THAT THIS WAS NOT NECESSARY AND STATES I WILL COPE WITH IT . PT. DOES REPORT THAT THIS PAIN SHE IS EXPERIENCING IS NOT BAD WHEN SHE ARRIVED TO THE HOSPITAL. PACED ON SPINNING BATH PERSON.
[2019-08-13 04:00] VITALS: BP 100/62; PULSE 63; PULSE 70; RESP 19; TEMP 36.7; O2SAT 95
[2019-08-13 05:02] VITALS: BMI 45.7
[2019-08-13 06:18] LABS: Basophils % 0.6 % (0.1-2.0); Eosinophils # 0.2 K/mm3 (0.0-0.4); Eosinophils % 3.3 % (0.1-12.0); Hematocrit 36.3 % (37.0-47.0); Hemoglobin 11.7 g/dL (12.2-16.2); Lymphocytes # 1.3 K/mm3 (0.7-4.5); Lymphocytes % 20.6 % (10-50); Mean Corpuscular HGB Conc 32.3 g/dL (31.8-35.4); Mean Corpuscular Hemoglobin 27.8 pg (27.0-31.2); Mean Corpuscular Volume 86.1 fl (81-99); Mean Platelet Volume 7.9 fl (7.4-10.4); Monocytes # 0.4 K/mm3 (0.1-1.0); Monocytes % 5.8 % (1.7-9.3); Neutrophils # 4.4 K/mm3 (1.8-7.8); Neutrophils % 69.7 % (37.0-80.0); Platelet Count 98 K/mm3 (142-424); Red Blood Count 4.21 M/mm3 (4.20-5.40); Red Cell Distribution Width 16.8 % (11.5-17.5); White Blood Count 6.4 K/mm3 (4.8-10.8)
[2019-08-13 06:19] LABS: Chloride 104 mmol/L (98-107)
[2019-08-13 06:20] LABS: Sodium 135 mmol/L (136-145)
[2019-08-13 06:22] LABS: Alanine Aminotransferase 25 U/L (12-78); Albumin Level 3.5 g/dl (3.5-5.0); Alkaline Phosphatase 123 U/L (38-126); Aspartate Amino Transferase 51 U/L (14-36); Bilirubin,Total 1.3 mg/dl (0.2-1.3); Blood Urea Nitrogen 17 mg/dl (7-17); Carbon Dioxide 26 mmol/L (22.0-30.0); Creatinine Clearance Estimated 48 mL/min (50-200); Estimated Glomerular Filt Rate 63 ml/min (>60); GFR (African American) 76 ML/MIN (>60)
[2019-08-13 06:23] LABS: Albumin/Globulin Ratio 1.3 (1.1-1.8); Calcium 9.1 mg/dl (8.4-10.2); Globulin 2.7 g/dL (1.3-3.2); Glucose 98 mg/dl (74-100); Total Protein,Serum 6.2 g/dl (6.3-8.2)
--- NOTE | 2019-08-13 07:30 | HMH.PHAVTE ---
[facility] Pharmacy VTE Monitoring - Patient Demographics Admission date: 08/12/19 Report Date: 08/13/19 Time: 07:30 Allergies/Adverse Reactions: Patient Allergies acetaminophen [From Coricidin] Allergy (Mild, Verified 07/09/19 10:35) Hives chlorpheniramine [From Coricidin] Allergy (Mild, Verified 07/09/19 10:35) Hives erythromycin base Allergy (Mild, Verified 07/09/19 10:35) Hives phenylpropanolamine [From Coricidin] Allergy (Mild, Verified 07/09/19 10:35) Hives ranolazine [From Ranexa] Allergy (Mild, Verified 07/09/19 10:35) Hives Sulfa (Sulfonamide Antibiotics) Allergy (Mild, Verified 07/09/19 10:35) Hives tegaserod [From Zelnorm] Adverse Reaction (Severe, Verified 07/09/19 10:35) Height: 1.63 m Weight: 121.563 kg Patient Problems: Current Active Problems Stable angina (Acute) - VTE Risk Labs: VTE Related Lab Results Hgb 11.7 g/dL (12.2-16.2) L 08/13/19 05:38 Hct 36.3 % (37.0-47.0) L 08/13/19 05:38 Plt Count 98 K/mm3 (142-424) L 08/13/19 05:38 BUN 17 mg/dl (7-17) 08/13/19 05:38 Creatinine 0.90 mg/dl (0.52-1.04) 08/13/19 05:38 Estimated Creat Clear 48 mL/min (50-200) 08/13/19 05:38 Was VTE Risk Assessment Performed: Yes VTE Score: 6 VTE Risk Level: Moderate Risk Clinical Trial Participant: No - Prophylaxis VTE Prophylaxis Ordered?: Yes Types of VTE Prophylaxis: TEDS Knee High
--- NOTE | 2019-08-13 07:43 | CA_ITS ---
APPROVED REPORT EXAM: Comprehensive 2D, Doppler, and color-flow Echocardiogram Mold Parter: Yumiko Johnson RT(R) Ht: 5 ft 4 in Wt: 268lbs BSA: 2.22 BP: 140/82 mmHg Indications: CP, HTN, SOB, Hyperlipidemia, CAD, [place], GERD, pacemaker, asthma. Patient became very teary eyed and upset during exam, breathing was interfering with images. 2D Dimensions LVOT 1.77 cm (M/F) 1.5-2.5 M-Mode Dimensions RVDd 3.01 cm (0.9-2.6) LVDd 6.06 cm (3.5-5.7) LVDs 4.75 cm (3.5-5.7) IVSd 0.97 cm (0.6-1.1) PWd 0.81 cm (0.6-1.1) EF (Teich) 43.00% FS 21.60% EDV (Teich) 184.10 mL ESV (Teich) 104.90 mL LV Diastology E/A Ratio 0.79 Mitral Valve MV A Velocity 58.00 (40-130 cm/s) Left Ventricle Left atrium is mildly enlarged, left ventricle is normal size, mild concentric left ventricular hypertrophy, visually estimated ejection fraction 50%, there is abnormal septal motion, there appears to be mild hypokinesis involving the distal septum and apical wall. Grade 1 diastolic dysfunction seen without tissue Doppler evidence of raise left atrial pressure. Right Ventricle Right atrium and right ventricular mildly enlarged with normal contractility, there is a pacemaker lead seen right atrium and right ventricle. Aortic Valve Aortic valve is minimally thickened and fibrosed leaflet continue to display good mobility, there is no aortic stenosis or aortic insufficiency. Mitral Valve Mitral valve is grossly normal, there is no mitral stenosis, there is mild mitral regurgitation. Tricuspid Valve Tricuspid valve is grossly normal, there is mild tricuspid regurgitation, calculated right ventricular systolic pressure is within normal range. Pulmonic Valve Pulmonic valve is poorly visualized. Great Vessels Aortic root is normal size. Pericardium No significant pericardial effusion noted. Conclusion 1. Biatrial enlargement, normal left ventricular size, mild concentric left ventricular hypertrophy, visually estimated ejection fraction 50%, there is abnormal septal motion, there is mild hypokinesis involving the distal septum and apical wall. Grade 1 diastolic dysfunction seen without tissue Doppler evidence of raise left atrial pressure. 2. Mildly enlarged right atrium and right ventricle, contractility of the right ventricle is normal. 3. Thickened and calcified aortic valve without aortic stenosis or aortic insufficiency. 4. Mild mitral and tricuspid regurgitation, calculated right ventricular systolic pressure is within normal range. 5. No significant pericardial effusion noted. Electronically signed by : Yunier Enriquez, 08/13/2019 11:05:11
--- NOTE | 2019-08-13 07:51 | HMH.PHAINT ---
HOME MEDICATION RECONCILIATION COMPLETED USING LIST FROM DR [facility]
[2019-08-13 08:00] VITALS: BP 128/66; PULSE 72; PULSE 74; RESP 20; TEMP 36.6; O2SAT 96
--- NOTE | 2019-08-13 09:15 | HMH.CNCARD ---
History of Present Illness Consult date: 08/13/19 Requesting physician: Stuart Gallagher Consult reason: chest pain Chief complaint: chest pain Additional Medical History:: 1. CAD A. AMELIA, 2006 B. Murphy myoview, 05/2019, 1. The EKG portion of the Lexiscan Myoview is nondiagnostic. 2. Scintigraphic evidence of mild reversible ischemia involving the anterior apical wall, computer derived ejection fraction 52% with no regional wall motion abnormality, right ventricle is normal size and contractility. 3. Abnormal Lexiscan Myoview study. Electronically signed by : Yunier Enriquez, 05/20/2019 16:25:24 [facility], ANGIOGRAPHIC RESULTS The left main artery Normal The left anterior descending artery Has a stent in the very proximal segment which is widely patent free of in-stent restenosis with excellent proximal and distal transitioning. The circumflex artery Is a large nondominant vessel giving rise to the ramus intermedius which has proximal concentric 30% stenosis. The circumflex artery itself has moderate proximal vascular ectasia with a mid vessel 20% [id number] stenosis The right coronary artery Is a dominant vessel and has proximal 30 to 40% followed by an additional 40% stenosis. Distally there are 30% stenoses The [facility] ventriculogram reveals Normal 65% The left ventricular end-diastolic pressure 20 to 25 mmHg IMPRESSION Coronary artery disease as described above Normal ejection fraction Mild to moderately elevated LVEDP consistent with diastolic dysfunction PLAN 1. Medical management Electronically signed by : Kalpesh Bedoya, 05/28/2019 12:27:53 2. HTN A. echo, 03/2019, limited study to delineate endocardial surfaces with Definity contrast. Normal LV size, mild concentric LVH, EF 45 to 50% with moderate hypokinesis involving the distal septum and apical wall. No LV thrombus. 3. Hyperlipidemia 4. Obstructive sleep apnea, treated with CPAP 5. History of anemia requiring iron transfusion, followed by Hem/Onc. A. History of GI bleed question related to gastric sleeve/banding B. History of bone marrow biopsy with results reportedly okay per patient 6. Obesity with history of gastric sleeve and then reversal in early 2018 due to GI bleed 7. Permanent pacemaker, 05/2017 8. 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 pt given 324 mg asa 1 nitro and 4mg zofran per medic. pt states heart cath approx 2 months ago which was clean 64-year-old female presents the ED with an acute onset of substernal chest pain. She states the pain started about 2 hours ago and is progressively gotten worse until she presented here to the emergency department patient does describe the pain as a pressure and squeezing sensation and she states that she does have radiation up to the jaw and over to the left shoulder and to the back. Patient also states that she recently had a cardiac catheterization done by Dr. Bedoya 2 months ago and per cath report patient did have some stenoses in her vessels no intervention was done at that time and the impression was to medical manage this patient. Patient did have an MA back in 2009 did have one stent placed. Patient does have hyperlipidemia diabetes mellitus type 2 and also hypertension. Patient states with his episode of chest pain she did feel some short of breath but not overt short of breath. Patient denies any cough patient denies any headache patient denies any fever shakes or chills patient also denies any subjective fever. Patient also denies any recent nausea vomiting or diarrhea patient denies sore throat patient also denies any fatigue
--- NOTE | 2019-08-13 10:25 | HMH.ACPN2 ---
Internal Medicine - PN: Subj *Date: 08/13/19 *Time: 10:25 Interval history: 64-year-old female patient sitting up in bed, reports left-sided chest pain radiating up in the right neck and left arm during the night rates pain as 6/10 and being very sharp, denies diaphoresis during episode. She denies any chest pain or shortness of breath at this time, cardiology to see today Exam Vital signs and Labs for Last 24 Hours: Temp Pulse Resp BP Pulse Ox 97.8 F 74 20 128/66 96 08/13/19 08:00 08/13/19 08:00 08/13/19 08:00 08/13/19 08:00 08/13/19 08:00 Laboratory Results - last 24 hr 08/12/19 17:27: WBC 6.9, RBC 4.38, Hgb 12.3, Hct 38.1, MCV 87.0, MCH 27.9, MCHC 32.1, RDW 16.9, Plt Count 122 L, MPV 8.2, Neut % (Auto) 76.3, Lymph % (Auto) 15.7, [place] % (Auto) 4.4, Eos % (Auto) 3.2, Baso % (Auto) 0.4, Neut # (Auto) 5.3, Lymph # (Auto) 1.1, [place] # (Auto) 0.3, Eos # (Auto) 0.2, Baso # (Auto) 0.0 08/12/19 17:27: Sodium 136, Potassium 4.1, Chloride 102, Carbon Dioxide 25, Anion Gap 13.1, BUN 17, Creatinine 0.80, Estimated Creat Clear 88, Estimated GFR 72, Est GFR ( Amer) 87, Glucose 87, Calcium 9.3, Troponin I < 0.01 08/12/19 17:27: Total Bilirubin 1.1, Direct Bilirubin 0.4, Conjugated Bilirubin 0.0, Indirect Bilirubin 0.7, Unconjugated Bilirubin 0.7, AST 55 H, ALT 30, Alkaline Phosphatase 131 H, Total Protein 6.9, Albumin 3.9 08/12/19 17:46: Urine Color Yellow, Urine Appearance Clear, Urine pH 6.0, Ur Specific [place] 1.015, Urine Protein Negative, Urine Glucose (UA) Negative, Urine Ketones Negative, Urine Blood 2+, Urine Nitrate Negative, Urine Bilirubin Negative, Urine Urobilinogen 0.2, Ur Leukocyte Esterase Negative, Urine RBC 5-10, Urine WBC Occasional, Ur Squamous Epith Cells Occasional, Urine Bacteria Trace 08/12/19 20:28: Troponin I < 0.01 08/12/19 20:28: Sodium 139, Potassium 4.6, Chloride 103, Carbon Dioxide 26, Anion Gap 14.6, BUN 17, Creatinine 0.90, Estimated Creat Clear 88, Estimated GFR 63, Est GFR ( Amer) 76, Glucose 100, Calcium 9.3, Total Bilirubin 0.9, AST 51 H, ALT 28, Alkaline Phosphatase 131 H, Total Protein 6.7, Albumin 3.8, Globulin 2.9, Albumin/Globulin Ratio 1.3 08/12/19 22:39: Troponin I < 0.01 08/13/19 05:38: WBC 6.4, RBC 4.21, Hgb 11.7 L, Hct 36.3 L, MCV 86.1, MCH 27.8, MCHC 32.3, RDW 16.8, Plt Count 98 L, MPV 7.9, Neut % (Auto) 69.7, Lymph % (Auto) 20.6, [place] % (Auto) 5.8, Eos % (Auto) 3.3, Baso % (Auto) 0.6, Neut # (Auto) 4.4, Lymph # (Auto) 1.3, [place] # (Auto) 0.4, Eos # (Auto) 0.2, Baso # (Auto) 0.0 08/13/19 05:38: Sodium 135 L, Potassium 4.0, Chloride 104, Carbon Dioxide 26, Anion Gap 9.0, BUN 17, Creatinine 0.90, Estimated Creat Clear 48, Estimated GFR 63, Est GFR ( Amer) 76, Glucose 98, Calcium 9.1, Total Bilirubin 1.3, AST 51 H, ALT 25, Alkaline Phosphatase 123, Total Protein 6.2 L, Albumin 3.5, Globulin 2.7, Albumin/Globulin Ratio 1.3 I & O for Last 24 hours: Intake & Output 08/10/19 08/11/19 08/12/19 08/13/19 23:59 23:59 23:59 23:59 Intake Total 0 / 0 Balance 0 / 0 Weight 268 lb 8 oz 268 lb - Constitutional no acute distress - *Routine HEENT Exam Head: Present: normocephalic Eye: Present: EOMI ENT: Present: mucous membranes moist - *Routine Neck Exam Present: full ROM, trachea midline. Absent: JVD, tenderness - *Routine Respiratory Exam Present: CTA bilaterally. Absent: accessory muscle use - *Routine Cardiovascular Exam Present: RRR, murmur - *Routine Abdominal Exam Present: soft, normoactive bowel sounds. Absent: tenderness - *Routine Extremities Exam Present: pulses intact. Absent: calf tenderness - *Routine Skin Exam Present: intact, warm - *Routine Neurological Exam Present: alert, oriented X3, CN II-XII intact - Routine Psychiatric Exam Present: normal affect, normal thought process Assessment and Plan (1) Chest pain Current visit: No Status: Acute Qualifiers: Chest pain type: precordial pain Qualified Code(s): R07.2 - Pre
--- NOTE | 2019-08-13 11:40 | HMH.DCSUM ---
General - General Admission date:: 08/12/19 Discharge date: 08/13/19 HPI HPI: 64-year-old female patient sitting up in bed, reports left-sided chest pain radiating up in the right neck and left arm during the night rates pain as 6/10 and being very sharp, denies diaphoresis during episode. 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 pt given 324 mg asa 1 nitro and 4mg zofran per medic. pt states heart cath approx 2 months ago which was clean 64-year-old female presents the ED with an acute onset of substernal chest pain. She states the pain started about 2 hours ago and is progressively gotten worse until she presented here to the emergency department patient does describe the pain as a pressure and squeezing sensation and she states that she does have radiation up to the jaw and over to the left shoulder and to the back. Patient also states that she recently had a cardiac catheterization done by Dr. Bedoya 2 months ago and per cath report patient did have some stenoses in her vessels no intervention was done at that time and the impression was to medical manage this patient. Patient did have an LA back in 2009 did have one stent placed. Patient does have hyperlipidemia diabetes mellitus type 2 and also hypertension. Patient states with his episode of chest pain she did feel some short of breath but not overt short of breath. Patient denies any cough patient denies any headache patient denies any fever shakes or chills patient also denies any subjective fever. Patient also denies any recent nausea vomiting or diarrhea patient denies sore throat patient also denies any fatigue or malaise or arthralgias or myalgias or loss of smell or loss of taste. pt was admitted for card eval (Per Dr. 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 pt given 324 mg asa 1 nitro and 4mg zofran per medic. pt states heart cath approx 2 months ago which was clean 64-year-old female presents the ED with an acute onset of substernal chest pain. She states the pain started about 2 hours ago and is progressively gotten worse until she presented here to the emergency department patient does describe the pain as a pressure and squeezing sensation and she states that she does have radiation up to the jaw and over to the left shoulder and to the back. Patient also states that she recently had a cardiac catheterization done by Dr. Bedoya 2 months ago and per cath report patient did have some stenoses in her vessels no intervention was done at that time and the impression was to medical manage this patient. Patient did have an LA back in 2009 did have one stent placed. Patient does have hyperlipidemia diabetes mellitus type 2 and also hypertension. Patient states with his episode of chest pain she did feel some short of breath but not overt short of breath. Patient denies any cough patient denies any headache patient denies any fever shakes or chills patient also denies any subjective fever. Patient also denies any recent nausea vomiting or diarrhea patient denies sore throat patient also denies any fatigue or malaise or arthralgias or myalgias or loss of smell or loss of taste. pt was admitted for card eval (Per Dr. Gallagher) Cards has seen and rec: 1. Chest pain with emesis with no acute EKG changes and normal troponins x3 with r
[2019-08-13 12:00] VITALS: PULSE 70
--- NOTE | 2019-08-13 14:55 | HMH.PHAINT ---
DISCHARGE COUNSELING COMPLETED.
== END 2019-08-13 14:28 | disposition home or self-care (01) ==
LOC: ER 18:36 → 2ND 20:47
PROVIDERS: Admitting Provider Family Medicine; Emergency Provider Family Medicine; PCP Emergency Medicine; Visit Provider Emergency Medicine
DX: R07.9 Chest pain, unspecified (principal); I25.10 Atherosclerotic heart disease of native coronary artery without angina pectoris; Z95.0 Presence of cardiac pacemaker; I11.0 Hypertensive heart disease with heart failure; I50.9 Heart failure, unspecified; E66.01 Morbid (severe) obesity due to excess calories; Z68.42 Body mass index [BMI] 45.0-49.9, adult; G47.33 Obstructive sleep apnea (adult) (pediatric); E11.9 Type 2 diabetes mellitus without complications; Z79.51 Long term (current) use of inhaled steroids; Z79.82 Long term (current) use of aspirin; Z79.899 Other long term (current) drug therapy; Z88.2 Allergy status to sulfonamides; Z88.1 Allergy status to other antibiotic agents; Z88.8 Allergy status to other drugs, medicaments and biological substances
CPT/HCPCS: 36415; 71045; 80048; 80053; 80076; 81001; 84484; 85025; 93005; 93306; 96374; 96375; 99284; G0378; J2405

== ENCOUNTER 2019-08-26 15:05 | Emergency (ER) | payer MEDICARE, SELFPAY ==
[2019-08-26 15:06] VITALS: BP 112/67; PULSE 94; RESP 17; TEMP 37.3; O2SAT 98; BMI 45.9
[2019-08-26 15:35] VITALS: BP 115/47; PULSE 78; O2SAT 98
[2019-08-26 15:39] LABS: Basophils % 0.5 % (0.1-2.0); Eosinophils # 0.1 K/mm3 (0.0-0.4); Eosinophils % 1.5 % (0.1-12.0); Hematocrit 38.3 % (37.0-47.0); Hemoglobin 13.1 g/dL (12.2-16.2); Lymphocytes # 0.5 K/mm3 (0.7-4.5); Lymphocytes % 5.7 % (10-50); Mean Corpuscular HGB Conc 34.3 g/dL (31.8-35.4); Mean Corpuscular Hemoglobin 30.3 pg (27.0-31.2); Mean Corpuscular Volume 88.6 fl (81-99); Mean Platelet Volume 8.2 fl (7.4-10.4); Monocytes # 0.4 K/mm3 (0.1-1.0); Monocytes % 4.9 % (1.7-9.3); Neutrophils # 7.2 K/mm3 (1.8-7.8); Neutrophils % 87.4 % (37.0-80.0); Platelet Count 109 K/mm3 (142-424); Red Blood Count 4.33 M/mm3 (4.20-5.40); Red Cell Distribution Width 16.2 % (11.5-17.5); White Blood Count 8.2 K/mm3 (4.8-10.8)
[2019-08-26 15:42] LABS: MANUAL DIFFERENTIAL MANUAL DIFFERENTIAL (MANUAL DIFF)
[2019-08-26 15:46] LABS: Chloride 103 mmol/L (98-107); Sodium 141 mmol/L (136-145)
[2019-08-26 15:47] LABS: Potassium 4.1 mmoL/L (3.5-5.1)
[2019-08-26 15:49] LABS: Alanine Aminotransferase 28 U/L (12-78); Alkaline Phosphatase 149 U/L (38-126); Anion Gap 14.1 mEq/L (5-15); Aspartate Amino Transferase 57 U/L (14-36); Bilirubin,Total 1.6 mg/dl (0.2-1.3); Blood Urea Nitrogen 12 mg/dl (7-17); Calcium 9.3 mg/dl (8.4-10.2); Carbon Dioxide 28 mmol/L (22.0-30.0); Creatinine Clearance Estimated 50 mL/min (50-200); Estimated Glomerular Filt Rate 63 ml/min (>60); GFR (African American) 76 ML/MIN (>60); Glucose 90 mg/dl (74-100)
[2019-08-26 15:50] LABS: Albumin Level 4.2 g/dl (3.5-5.0); Albumin/Globulin Ratio 1.4 (1.1-1.8); Globulin 2.9 g/dL (1.3-3.2); Total Protein,Serum 7.1 g/dl (6.3-8.2)
[2019-08-26 15:57] LABS: Lymphocytes % 10 % (10-50); Monocytes % 6 % (2-9); Neutrophils % 84 % (42-76); Platelet Estimate Slight Decrease; RBC Morphology Normal; Total Cells Counted 100
[2019-08-26 16:04] VITALS: BP 103/44; PULSE 70; O2SAT 96
[2019-08-26 16:51] VITALS: BP 108/52; PULSE 72; O2SAT 95
--- NOTE | 2019-08-26 17:00 | HMH.EDGENADL ---
ED Disposition Clinical Impression: Gastroenteritis Disposition: Home, Self-Care Condition on Discharge: Good Prescriptions: Ondansetron [Zofran 4mg ODT] 4 mg PO TID PRN 4 Days #15 tab.rapdis PRN Reason: Nausea Transmission Status: Pending to [facility] Referrals: Scott Hickman APRN [Primary Care Provider] - - Critical Care Critical Care Time: No Attestation: On 08/26/19, the high probability of a clinically significant, sudden or life threatening deterioration of the following system(s) required my full and direct attention, intervention and personal management. The time I documented below is in addition to time spent performing reported procedures but includes the following listed in this critical care notation. Medical Decision Making - Medical Records Medical records reviewed: Yes: I reviewed the patient's medical records. - Fercho Inquiry Pt receiving controlled substance: No Vital Signs: 08/26/19 15:06 08/26/19 15:35 08/26/19 16:04 Temperature 99.2 F Temperature Source Oral Pulse Rate [Radial] 94 H 78 70 Respiratory Rate 17 Blood Pressure [Right Arm] 112/67 115/47 L 103/44 L Blood Pressure Mean [Right Arm] 82 69 63 Blood Pressure Source [Right Arm] Automatic Cuff Automatic Cuff Automatic Cuff Blood Pressure Position [Right Arm] Sitting Sitting 02 Sat by Pulse Oximetry 98 98 96 Oxygen Delivery Method Room Air Room Air Room Air 08/26/19 16:51 Temperature Temperature Source Pulse Rate [Radial] 72 Respiratory Rate Blood Pressure [Right Arm] 108/52 L Blood Pressure Mean [Right Arm] 70 Blood Pressure Source [Right Arm] Automatic Cuff Blood Pressure Position [Right Arm] Sitting 02 Sat by Pulse Oximetry 95 Oxygen Delivery Method Room Air - Lab Data Lab results reviewed: Yes: I reviewed the patient's lab results. Lab Results 08/26/19 15:25: WBC 8.2, RBC 4.33, Hgb 13.1, Hct 38.3, MCV 88.6, MCH 30.3, MCHC 34.3, RDW 16.2, Plt Count 109 L, MPV 8.2, Neut % (Auto) 87.4 H, Lymph % (Auto) 5.7 L, [place] % (Auto) 4.9, Eos % (Auto) 1.5, Baso % (Auto) 0.5, Neut # (Auto) 7.2, Lymph # (Auto) 0.5 L, [place] # (Auto) 0.4, Eos # (Auto) 0.1, Baso # (Auto) 0.0, Total Counted 100, Neutrophils % (Manual) 84 H, Lymphocytes % (Manual) 10, Monocytes % (Manual) 6, Platelet Estimate Slight decrease, RBC Morphology Normal 08/26/19 15:25: Sodium 141, Potassium 4.1, Chloride 103, Carbon Dioxide 28, Anion Gap 14.1, BUN 12, Creatinine 0.90, Estimated Creat Clear 50, Estimated GFR 63, Est GFR ( Amer) 76, Glucose 90, Calcium 9.3, Total Bilirubin 1.6 H, AST 57 H, ALT 28, Alkaline Phosphatase 149 H, Total Protein 7.1, Albumin 4.2, Globulin 2.9, Albumin/Globulin Ratio 1.4 Result diagrams: 08/26/19 15:25 08/26/19 15:25 Orders (Tests/Meds): ED MEDICATIONS Discontinued Medications Generic Name Dose Route Start Last Admin Trade Name Malachi PRN Reason Stop Dose Admin Sodium Chloride 1,000 mls @ 999 mls/hr 08/26/19 15:30 08/26/19 15:29 Sod Chlor 0.9% 1000ml Bag IV 08/26/19 16:30 999 mls/hr .Q1H1M JANINA Administration General Adult HPI - General Chief complaint: Recheck/Abnormal Lab/Rx Stated complaint: possible dehydrated Time Seen by Provider: 08/26/19 17:00 Mode of Arrival: Ambulatory Source of Information: Patient Limitations: No Limitations Description of Symptoms (Recalled from ER Triage Doc. by RN): Sent from Scott's office related to bleeding from her rectum. states that she has went to the bathroom 13 times. - History of Present Illness HPI narrative: 64-year-old female comes in with some nausea and vomiting and she states that she has had blood in her stool for the past couple of days. She was seen by her primary care and they sent her down here to get some IV fluids for possible dehydration. Otherwise patient denies any pain patient denies any sort of infectious process she denies any recent fever shakes or chills she also denies any nausea vomiting diarrhea s
[2019-08-26 17:50] VITALS: BP 108/52; PULSE 72; RESP 17; TEMP 37.3; O2SAT 95
== END 2019-08-26 17:52 | disposition home or self-care (01) ==
PROVIDERS: Emergency Provider Family Medicine; PCP Nurse Practitioner Family
DX: K52.9 Noninfective gastroenteritis and colitis, unspecified (principal); K21.9 Gastro-esophageal reflux disease without esophagitis; F41.8 Other specified anxiety disorders; I10 Essential (primary) hypertension; E78.5 Hyperlipidemia, unspecified; Z95.0 Presence of cardiac pacemaker; Z88.2 Allergy status to sulfonamides; Z88.8 Allergy status to other drugs, medicaments and biological substances; Z79.899 Other long term (current) drug therapy
CPT/HCPCS: 80053; 85007; 85025; 96365; 99283

== ENCOUNTER 2019-09-07 13:42 | Outpatient (RCR) | payer MEDICARE, SELFPAY | END 2019-11-01 11:10 | disposition home or self-care (01) | LOC: PT 13:42 | PROVIDERS: Visit Provider Family Medicine | DX: R07.9 Chest pain, unspecified (principal) | CPT/HCPCS: 93798 ==

== ENCOUNTER 2020-01-06 11:42 | Emergency (ER) | payer MEDICARE, SELFPAY ==
[2020-01-06] VITALS (7 sets, daily range): BP systolic 96–127; BP diastolic 45–74; PULSE 70–92; RESP 16–21; TEMP 36.6–37.1; O2SAT 70–98; BMI 43.4
--- NOTE | 2020-01-06 11:49 | ECG_ITS ---
APPROVED REPORT Exam: Resting ECG HR:70 bpm ECG Measurements Heart Rate 70 AXES QRSd 96 QRS 11 QT 446 T 19 QTc 481 Conclusion Electronic atrial pacemaker Late R-wave progression, unchanged from 2019 Abnormal ECG Electronically signed by : Kvng Arenas, 01/07/2020 13:47:23
--- NOTE | 2020-01-06 11:49 | XR_ITS ---
PROCEDURE: XR CHEST PORTABLE CLINICAL HISTORY: chest pain COMPARISON: CT CT ANGIO CHEST from 07/05/2019 CR XR CHEST PORTABLE from 07/05/2019 CR XR CHEST PORTABLE from 07/23/2019 CR XR CHEST PORTABLE from 08/12/2019 FINDINGS: Bipolar pacemaker is present from left subclavian approach. Borderline cardiomegaly without failure. The lungs are clear without infiltrates, suspicious nodules, or pleural effusions. No acute bony abnormalities. IMPRESSION: No acute findings. Dictated by: Hugo Erwin MD 01/06/2020 12:53 Hugo Erwin MD in [place] 01/06/2020 12:53
--- NOTE | 2020-01-06 11:50 | HMH.EDGENADL ---
ED Disposition Clinical Impression: GI bleed Qualifiers: GI bleed type/associated pathology: unspecified gastrointestinal hemorrhage type Qualified Code(s): K92.2 - Gastrointestinal hemorrhage, unspecified UTI (urinary tract infection) Qualifiers: Urinary tract infection type: acute cystitis Hematuria presence: with hematuria Qualified Code(s): N30.01 - Acute cystitis with hematuria Disposition: Home, Self-Care Condition on Discharge: Fair Instructions: Gastrointestinal Bleeding Prescriptions: Nitrofurantoin Monohyd/M-Cryst [Macrobid 100 mg Capsule] 100 mg PO BID #10 cap Transmission Status: Pending to [facility] Omeprazole [Omeprazole 20mg Capsule] 20 mg PO DAILY #30 cap Transmission Status: Pending to [facility] Time of Disposition: 14:16 - Critical Care Critical Care Time: No Attestation: On , the high probability of a clinically significant, sudden or life threatening deterioration of the following system(s) required my full and direct attention, intervention and personal management. The time I documented below is in addition to time spent performing reported procedures but includes the following listed in this critical care notation. Medical Decision Making - Medical Records Medical records reviewed: Yes: I reviewed the patient's medical records. - Fercho Inquiry Pt receiving controlled substance: No Vital Signs: 01/06/20 11:43 01/06/20 12:01 01/06/20 12:30 Temperature 98.7 F Temperature Source Oral Pulse Rate [Radial] 70 92 H 70 Respiratory Rate 20 17 20 Blood Pressure [Right Arm] 96/47 L 98/45 L 100/49 L Blood Pressure Mean [Right Arm] 63 62 66 Blood Pressure Source [Right Arm] Automatic Cuff Automatic Cuff Blood Pressure Position [Right Arm] Sitting Sitting Sitting 02 Sat by Pulse Oximetry 98 72 L 70 L Oxygen Delivery Method Room Air Room Air 01/06/20 13:30 Temperature Temperature Source Pulse Rate [Radial] 70 Respiratory Rate 21 Blood Pressure [Right Arm] 118/64 Blood Pressure Mean [Right Arm] 82 Blood Pressure Source [Right Arm] Automatic Cuff Blood Pressure Position [Right Arm] Sitting 02 Sat by Pulse Oximetry 70 L Oxygen Delivery Method Room Air - Lab Data Lab Results 01/06/20 11:46: WBC 5.2, RBC 4.10 L, Hgb 11.4 L, Hct 36.4 L, MCV 88.7, MCH 27.9, MCHC 31.5 L, RDW 15.0, Plt Count 86 L, MPV 9.3, Neut % (Auto) 73.9, Lymph % (Auto) 15.4, [place] % (Auto) 5.0, Eos % (Auto) 5.5, Baso % (Auto) 0.4, Neut # (Auto) 3.9, Lymph # (Auto) 0.8, [place] # (Auto) 0.3, Eos # (Auto) 0.3, Baso # (Auto) 0.0 01/06/20 11:46: D-Dimer 1.03 01/06/20 11:46: Sodium 139, Potassium 3.5, Chloride 107, Carbon Dioxide 30, Anion Gap 5.5, BUN 13, Creatinine 0.60, Estimated Creat Clear 53, Estimated GFR 100, Est GFR ( Amer) 121, Glucose 103 H, Calcium 8.0 L, Troponin I < 0.01, Lipase 191 01/06/20 13:02: Urine Color Yellow, Urine Appearance Clear, Urine pH 7.0, Ur Specific [place] 1.010, Urine Protein Negative, Urine Glucose (UA) Negative, Urine Ketones Negative, Urine Blood 1+, Urine Nitrate Negative, Urine Bilirubin Negative, Urine Urobilinogen 0.2, Ur Leukocyte Esterase 1+ A, Urine RBC 3-5, Urine WBC 5-10, Ur Squamous Epith Cells 3-5, Urine Bacteria 1+, Urine Yeast Occasional 01/06/20 13:42: Stool Occult Blood Positive A Result diagrams: 01/06/20 11:46 01/06/20 11:46 Orders (Tests/Meds): ED MEDICATIONS Discontinued Medications Generic Name Dose Route Start Last Admin Trade Name Malachi PRN Reason Stop Dose Admin Promethazine HCl 12.5 mg 01/06/20 12:02 01/06/20 12:04 Promethazine Hcl 25mg/Ml 1ml Vial IV 01/06/20 12:03 12.5 mg ONCE ONE Administration Sodium Chloride 25 ml 01/06/20 12:02 01/06/20 12:05 Sodium Chloride 0.9% 25ml Bag IV 01/06/20 12:03 25 ml ONCE ONE Administration ORDERS Category Date Time Status Troponin I Q3H Lab 01/06/20 15:00 Ordered Troponin I Q3H Lab 01/06/20 18:00 Ordered Urine Culture Stat Micro 01/06/20 13:02 Rec
[2020-01-06 11:57] LABS: Basophils % 0.4 % (0.1-2.0); Eosinophils # 0.3 K/mm3 (0.0-0.4); Eosinophils % 5.5 % (0.1-12.0); Hematocrit 36.4 % (37.0-47.0); Hemoglobin 11.4 g/dL (12.2-16.2); Lymphocytes # 0.8 K/mm3 (0.7-4.5); Lymphocytes % 15.4 % (10-50); Mean Corpuscular HGB Conc 31.5 g/dL (31.8-35.4); Mean Corpuscular Hemoglobin 27.9 pg (27.0-31.2); Mean Corpuscular Volume 88.7 fl (81-99); Mean Platelet Volume 9.3 fl (7.4-10.4); Monocytes # 0.3 K/mm3 (0.1-1.0); Neutrophils # 3.9 K/mm3 (1.8-7.8); Neutrophils % 73.9 % (37.0-80.0); Platelet Count 86 K/mm3 (142-424); White Blood Count 5.2 K/mm3 (4.8-10.8)
[2020-01-06 12:04] LABS: Anion Gap 5.5 mEq/L (5-15); Blood Urea Nitrogen 13 mg/dl (7-17); Carbon Dioxide 30 mmol/L (22.0-30.0); Chloride 107 mmol/L (98-107); Creatinine Clearance Estimated 53 mL/min (50-200); Estimated Glomerular Filt Rate 100 ml/min (>60); GFR (African American) 121 ML/MIN (>60); Glucose 103 mg/dl (74-100); Lipase 191 U/L (23-300); Potassium 3.5 mmoL/L (3.5-5.1); Sodium 139 mmol/L (136-145)
[2020-01-06 12:09] LABS: D-Dimer 1.03 ug/mL (0.15-8.0)
[2020-01-06 12:22] LABS: Troponin I < 0.01 ng/ml (0.00-0.034)
--- NOTE | 2020-01-06 13:05 | PC.NURSE ---
pt up to bathroom ambulatory with minimal assistance
[2020-01-06 13:09] LABS: Microscopic, Urine URINE MICROSCOPIC (MICROSCOPIC)
[2020-01-06 13:13] LABS: Appearance,Urine CLEAR (Clear); Bilirubin,Urine Negative (Negative); Blood, Urine 1+ (Negative); Color,Urine YELLOW (Yellow); Glucose,Urine (UA) Negative (Negative); Ketones,Urine Negative (Negative); Leukocyte Esterase,Urine 1+ (Negative); Nitrate,Urine Negative (Negative); Protein,Urine Negative (Negative); Urobilinogen,Urine 0.2 EU/dl (0.2)
[2020-01-06 13:32] LABS: Bacteria,Urine 1+ /lpf; Yeast,Urine Occasional /lpf
--- NOTE | 2020-01-06 13:33 | PC.NURSE ---
assisted in rectal exam. Pt up to restroom again at this time.
[2020-01-06 13:49] LABS: Occult Blood,Stool Positive (Negative)
[2020-01-06 15:47] LABS: Troponin I < 0.01 ng/ml (0.00-0.034)
== END 2020-01-06 16:16 | disposition home or self-care (01) ==
PROVIDERS: Emergency Provider Emergency Medicine; PCP Emergency Medicine
DX: K92.2 Gastrointestinal hemorrhage, unspecified (principal); N30.01 Acute cystitis with hematuria; I25.10 Atherosclerotic heart disease of native coronary artery without angina pectoris; I10 Essential (primary) hypertension; E78.5 Hyperlipidemia, unspecified; K21.9 Gastro-esophageal reflux disease without esophagitis; F41.8 Other specified anxiety disorders; G43.709 Chronic migraine without aura, not intractable, without status migrainosus; Z88.2 Allergy status to sulfonamides; Z95.0 Presence of cardiac pacemaker
CPT/HCPCS: 71045; 80048; 81001; 82272; 83690; 84484; 85025; 85378; 87086; 87088; 87186; 93005; 96365; 96374; 99284; G0328

== ENCOUNTER → 2020-06-23 08:11 | Outpatient (CLI) | payer MEDICARE, SELFPAY ==
[2020-06-23 09:02] LABS: Anion Gap 10.2 mEq/L (5-15); Blood Urea Nitrogen 17 mg/dl (7-17); Calcium 8.8 mg/dl (8.4-10.2); Carbon Dioxide 26 mmol/L (22.0-30.0); Chloride 105 mmol/L (98-107); Estimated Glomerular Filt Rate 84 ml/min (>60); GFR (African American) 101 ML/MIN (>60); Glucose 101 mg/dl (74-100); Potassium 4.2 mmoL/L (3.5-5.1); Sodium 137 mmol/L (136-145)
[2020-06-23 10:37] LABS: Basophils % 0.5 % (0.1-2.0); Eosinophils # 0.2 K/mm3 (0.0-0.4); Eosinophils % 3.3 % (0.1-12.0); Hematocrit 33.3 % (37.0-47.0); Hemoglobin 10.9 g/dL (12.2-16.2); Lymphocytes # 0.9 K/mm3 (0.7-4.5); Lymphocytes % 15.9 % (10-50); Mean Corpuscular HGB Conc 32.7 g/dL (31.8-35.4); Mean Corpuscular Hemoglobin 26.9 pg (27.0-31.2); Mean Corpuscular Volume 82.1 fl (81-99); Mean Platelet Volume 8.6 fl (7.4-10.4); Monocytes # 0.3 K/mm3 (0.1-1.0); Monocytes % 5.4 % (1.7-9.3); Neutrophils # 4.2 K/mm3 (1.8-7.8); Neutrophils % 74.9 % (37.0-80.0); Platelet Count 83 K/mm3 (142-424); Red Blood Count 4.06 M/mm3 (4.20-5.40); Red Cell Distribution Width 16.9 % (11.5-17.5); White Blood Count 5.6 K/mm3 (4.8-10.8)
== END ==
PROVIDERS: Visit Provider Internal Medicine Cardiovascular Disease
DX: K21.9 Gastro-esophageal reflux disease without esophagitis; R06.00 Dyspnea, unspecified; R94.30 Abnormal result of cardiovascular function study, unspecified; E78.2 Mixed hyperlipidemia; I11.9 Hypertensive heart disease without heart failure; I25.118 Atherosclerotic heart disease of native coronary artery with other forms of angina pectoris; R06.02 Shortness of breath; R60.0 Localized edema; Z95.0 Presence of cardiac pacemaker
CPT/HCPCS: 36415; 80048; 83880; 85025

== ENCOUNTER → 2020-07-18 14:46 | Outpatient (CLI) | payer MEDICARE, SELFPAY ==
[2020-07-18 15:10] LABS: Basophils % 0.6 % (0.1-2.0); Eosinophils # 0.3 K/mm3 (0.0-0.4); Eosinophils % 4.3 % (0.1-12.0); Hematocrit 31.9 % (37.0-47.0); Hemoglobin 10.5 g/dL (12.2-16.2); Lymphocytes # 1.1 K/mm3 (0.7-4.5); Lymphocytes % 15.7 % (10-50); Mean Corpuscular Hemoglobin 27.1 pg (27.0-31.2); Mean Corpuscular Volume 82.1 fl (81-99); Mean Platelet Volume 8.8 fl (7.4-10.4); Monocytes # 0.4 K/mm3 (0.1-1.0); Monocytes % 4.8 % (1.7-9.3); Neutrophils # 5.4 K/mm3 (1.8-7.8); Neutrophils % 74.5 % (37.0-80.0); Platelet Count 111 K/mm3 (142-424); Red Blood Count 3.88 M/mm3 (4.20-5.40); Red Cell Distribution Width 16.3 % (11.5-17.5); White Blood Count 7.2 K/mm3 (4.8-10.8)
== END ==
PROVIDERS: Visit Provider Urology
DX: E78.5 Hyperlipidemia, unspecified (principal); I11.9 Hypertensive heart disease without heart failure; I25.10 Atherosclerotic heart disease of native coronary artery without angina pectoris; R06.00 Dyspnea, unspecified; R53.83 Other fatigue; R58 Hemorrhage, not elsewhere classified; R60.0 Localized edema; Z95.0 Presence of cardiac pacemaker
CPT/HCPCS: 36415; 85025